=== PATIENT | male | born 2000 | race Caucasian/White ===

== ENCOUNTER 2022-06-13 21:36 | Inpatient (IN) ==
[2022-06-13 23:29] LABS: ABS Eosinophils 0.1 10^3/ul (0-0.6); ABS Lymphocytes 1.8 10^3/ul (1.0-4.8); ABS Monocytes 0.6 10^3/ul (0-0.8); ABS Neutrophils 8.5 10^3/ul (1.5-7.7); Eosinophil % 0.9 %; Hematocrit 49 % (42-52); Hemoglobin 16.5 g/dL (14.0-18.0); Lymphocyte % 16.4 %; Mean Corpuscular HGB Conc 34 g/dL (31-36); Mean Corpuscular Hemoglobin 30 pg (27-31); Mean Corpuscular Volume 89 fL (80-94); Mean Platelet Volume 7.8 fL (7.4-10.4); Nucleated Red Blood Cells % 0.1; Platelet Count 281 10^3/uL (150-450); Red Blood Count 5.53 10^6 /uL (4.18-5.48); Red Cell Distribution Width 13 % (10-15)
[2022-06-13 23:37] LABS: INR 1.01 (0.89-1.11)
[2022-06-13 23:39] LABS: Urine Appearance Clear; Urine Bilirubin Negative (Negative); Urine Blood Negative (Negative); Urine Color Yellow; Urine Glucose Negative (Negative); Urine Ketones Negative (Negative); Urine Nitrite Negative (Negative); Urine Protein Negative (Negative); Urine Urobilinogen 0.2 (Negative) (Negative)
[2022-06-13 23:51] LABS: High Sens Troponin Baseline < 3 pg/mL (<20)
[2022-06-14 00:01] LABS: Urine Benzodiazepine Screen None Detected (None Detect); Urine Cannabinoids Screen Presumptive Positive (None Detect); Urine Opiates Screen None Detected (None Detect)
[2022-06-14 00:02] LABS: ALT 17 U/L (7-52); AST 19 U/L (13-39); Acetaminophen < 15 mcg/mL; Albumin/Globulin Ratio 1.9 (1-3); Alcohol, S < 13 mg/dL (<13); Alkaline Phosphatase 88 U/L (35-149); Anion Gap 16 mmol/L (2-11); Blood Urea Nitrogen 14 mg/dL (6-24); CO2 Carbon Dioxide 24 mmol/L (22-32); Calcium 10.2 mg/dL (8.6-10.3); Chloride 102 mmol/L (101-111); Globulin 2.7 g/dL (2-4); Glucose 90 mg/dL (70-100); Potassium 4.3 mmol/L (3.5-5.0); Salicylate < 2.50 mg/dL (<30); Sodium 142 mmol/L (135-145); Total Protein 7.7 g/dL (6.4-8.9); eGFR CKD-EPI 79.2 (>60)
[2022-06-14 00:17] LABS: TSH Ultra Thyroid Stim Horm 0.99 mcIU/mL (0.34-5.60)
[2022-06-14 00:53] LABS: High Sensitivity Troponin 1 Hr 3 pg/mL (<20)
[2022-06-14] MEDS ORDERED: Nicotine PATCH 21 MG/24 HR PATCH TRANSDERM ONE (02:29)
[2022-06-14] MEDS ORDERED: Al Hydrox/Mg Hydrox/Simet LIQ 30 ML UDC PO PRN (03:28)
[2022-06-14] MEDS: Vitamin THERAPEUTIC TAB PO SCH ×2 (09:30→11:39)
[2022-06-14] MEDS: Nicotine GUM 2MG FRUIT FLAVOR PO PRN (14:57)
[2022-06-14] MEDS: Nicotine PATCH 21 MG/24 HR PATCH TRANSDERM SCH (15:45)
[2022-06-15] MEDS: Nicotine GUM 2MG FRUIT FLAVOR PO PRN ×5 (06:02→21:14)
[2022-06-15] MEDS: Vitamin THERAPEUTIC TAB PO SCH (07:43)
[2022-06-15] MEDS: Nicotine PATCH 21 MG/24 HR PATCH TRANSDERM SCH (07:44)
[2022-06-15 07:56] LABS: HDL Cholesterol 34.9 mg/dL
[2022-06-15] MEDS: Nicotine Lozenge mini 2 MG LOZNG.MINI MT PRN (17:44)
[2022-06-16] MEDS: Nicotine PATCH 21 MG/24 HR PATCH TRANSDERM SCH (07:15)
[2022-06-16] MEDS: Vitamin THERAPEUTIC TAB PO SCH (07:16)
[2022-06-16] MEDS: Nicotine GUM 2MG FRUIT FLAVOR PO PRN (08:40)
[2022-06-16] MEDS: Nicotine Lozenge mini 2 MG LOZNG.MINI MT PRN ×2 (11:04→18:01)
[2022-06-17] MEDS: Vitamin THERAPEUTIC TAB PO SCH (08:30)
[2022-06-17] MEDS: Nicotine GUM 2MG FRUIT FLAVOR PO PRN ×2 (08:30→12:07)
[2022-06-17] MEDS: Nicotine PATCH 21 MG/24 HR PATCH TRANSDERM SCH (08:32)
== END 2022-06-17 15:00 | disposition home or self-care (01) | DRG 753 ==
LOC: ED 21:36 → BSU 06-14 03:28
PROVIDERS: ADMIT Psychiatry & Neurology Psychiatry; ATTEND Psychiatry & Neurology Psychiatry